=== PATIENT | male | born 1965 | race Caucasian/White ===

== ENCOUNTER 2018-08-14 10:38 | Emergency (ER) | payer OTHER ==
[~2018-08-14] VITALS: Ht 170.2 cm; Wt 72.6 kg
[2018-08-14 10:42] VITALS: Ht 170.2 cm; Wt 72.6 kg
[2018-08-14 13:19] VITALS: BP 108/77
== END 2018-08-14 15:50 | disposition home or self-care (01) ==
LOC: ED 10:38
DX: F10.129 Alcohol abuse with intoxication, unspecified (principal); I10 Essential (primary) hypertension; E11.9 Type 2 diabetes mellitus without complications